=== PATIENT | male | born 1980 | race Caucasian/White ===

== ENCOUNTER → 2022-02-22 | Outpatient (CLI) | payer OTHER ==
--- NOTE | 2022-02-22 16:17 | MR ---
EXAMINATION TYPE: MR lumbar spine wo con DATE OF EXAM: 02/22/2022 COMPARISON: NONE HISTORY: Low back pain, electric like shock down into toes of left foot. TECHNIQUE: Multiplanar, multisequence imaging of the lumbar spine is performed without IV contrast. FINDINGS: Sagittal images of the lumbar spine show vertebral body heights to appear satisfactory. Gra de 1 anterolisthesis L5 on S1 measured 8 mm long posterior vertebral body margin sagittal image 10. D isc desiccation L4-L5 and L5-S1 levels. Advanced disc space narrowing with heterogeneous low dictate 2 endplate changes at L5-S1 level. The conus medullaris is normal in position and signal ending infer ior L1 level. Axial images show T12-L1 through the L3-L4 level to appear within normal limits. Axial images at L4-L5 level show mild facet arthropathy bilaterally. Axial images at L5-S1 level show mild facet arthropathy bilaterally. Spondylolisthesis is seen. Mild broad disc bulge noted. Spinal canal preserved. Moderate to severe bilateral neural foraminal narrowi ng effacing the inferior aspect of the bilateral L5 nerves is seen on the right sagittal image 14 and 15 and on the left sagittal image 5 and 6. Paraspinal muscle bulk is preserved. Round T2 hyperintense 1.1 cm lesion anterior left kidney axial i mage 22 favors benign thin-walled cyst. IMPRESSION: Spondylolisthesis and degenerative change lumbosacral junction causing effacement of the bilateral L5 nerves as detailed above.
== END | disposition home or self-care (01) ==
LOC: RADMRIMAIN 15:17
PROVIDERS: ATTEND Family Medicine
DX: M43.16 Spondylolisthesis, lumbar region (principal); M47.817 Spondylosis without myelopathy or radiculopathy, lumbosacral region
CPT/HCPCS: 72148

== ENCOUNTER 2022-03-05 15:19 | Emergency (ER) | payer OTHER ==
[2022-03-05 15:29] VITALS: BP 143/90; PULSE 89; RESP 16; TEMP 98
[2022-03-05] MEDS ORDERED: LIDOCAINE 1% INJ 10MG/ML (30 ML VIAL-PF) SQ ONE (15:37)
[2022-03-05] MEDS ORDERED: DIPH,PERTUS(ACELL)TETVAC-LF 0.5 ML VIAL IM ONE (15:41)
--- NOTE | 2022-03-05 15:58 | XR ---
Right third finger. HISTORY: Laceration. COMPARISON: None. TECHNIQUE: 3 views of the right third finger were obtained. These: There is a soft tissue defect consistent with the history of laceration. There is no fracture, dislocation, intraosseous or intra-articular body. There is no radiopaque forei gn body. IMPRESSION: Soft tissue defect consistent with laceration otherwise no significant abnormality seen.
--- NOTE | 2022-03-05 16:28 | ED ---
Wound/Laceration HPI - General Chief Complaint: Wound/Laceration Stated Complaint: R hand lac Time Seen by Provider: 03/05/22 15:30 Source: patient Mode of arrival: ambulatory Limitations: no limitations - History of Present Illness Initial Comments: Patient is a 41-year-old male presenting with chief complaint of laceration. Patient was pulling back on his crossbow when it slipped, cutting his right middle finger. Patient does not remember when his last tetanus shot was. He admits to swelling and some difficulty with range of motion. No numbness or tingling. - Related Data Home Medications Medication Instructions Recorded Confirmed No Known Home Medications 10/20/14 10/20/14 Allergies Allergy/AdvReac Type Severity Reaction Status Date / Time No Known Allergies Allergy Verified 10/20/14 14:46 Review of Systems ROS Statement: Those systems with pertinent positive or pertinent negative responses have been documented in the HPI. ROS Other: All systems not noted in ROS Statement are negative. 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 Absent: scleral icterus, conjunctival injection, periorbital swelling Neck exam: Present: normal inspection Extremities exam: Present: full ROM Neurological exam: Present: alert, oriented X3, CN II-XII intact Psychiatric exam: Present: normal affect, normal mood Expanded Type of lesion: Present: laceration (5 cm in length, located on the right third digit) Course Vital Signs 03/05/22 15:26 Temperature 98 F Pulse Rate 89 Respiratory 16 Rate Blood Pressure 143/90 O2 Sat by Pulse 96 Oximetry Procedures - Laceration Laceration #1 Consent Obtained: verbal consent Indication: laceration Site: upper extremity (Right third digit) Size (cm): 5 Description: linear Depth: involves tendon Anesthetic Used: lidocaine 1%, without epi Anesthesia Technique: local infiltration Amount (mls): 3 Pre-repair: wound explored, irrigated extensively Type of Sutures: nylon Size of Sutures: 4-0 Number of Sutures: 6 Technique: simple, interrupted Patient Tolerated Procedure: well Medical Decision Making - Medical Decision Making Patient is a 41-year-old male presenting with chief complaint of laceration to the right middle finger. Patient slipped when pulling back on his crossbow which resulted in this laceration. He does not remember when his last tetanus shot was, tetanus is updated here in the ER. X-ray shows no signs of foreign body or fracture. Wound is anesthetized and irrigated with 1 L sterile water. There appears to be some tendon involvement, patient still has good range of motion. Vascularly intact. Wound is repaired with 4 simple interrupted sutures using 4-0 nylon. Patient is placed in a finger splint and instructed to follow- up with orthopedics. Educated on wound care and signs of infection. Take Motrin and Tylenol as needed. Follow-up with PCP. Report back to ER with any new or worsening symptoms. Discussed return parameters and answered all questions. Patient conveyed verbal understanding and agreed to the plan. I discussed this case in detail with my attending Dr. Woods Disposition Clinical Impression: Laceration Disposition: HOME SELF-CARE Condition: Good Instructions (If sedation given, give patient instructions): Care For Your Stitches (ED), Finger Laceration (ED), Tendon Laceration (ED) Additional Instructions: Follow-up with PCP and orthopedics. Report back to ER with any new or worsening symptoms. Keep the wound clean, dry, covered. You may cleanse daily with gentle soap and water. Avoid prolonged submersion, such as abscess or swelling. Monitor for signs of infection, including but not limited to redness, swelling, warmth, tenderness, discharge, red streaking up the hand. Take Motrin and Tylenol today for pain control. Rest, ice, elevate the finger as needed. Is patient prescribed a controlled substance at d/c from ED?: No Referrals: Imer Berkowitz MD [Primary Care Provider] - 1-2 days Nitish Colin DO [Doctor of Osteopathic Medicine] - 1-2 days Time of Disposition: 16:28
== END 2022-03-05 16:43 | disposition home or self-care (01) ==
LOC: EC 15:19
DX: S61.411A Laceration without foreign body of right hand, initial encounter (principal); G45.9 Transient cerebral ischemic attack, unspecified; F17.200 Nicotine dependence, unspecified, uncomplicated; W26.9XXA Contact with unspecified sharp object(s), initial encounter
CPT/HCPCS: 73140; 90715; 99282; 12002; 96372; J2001